=== PATIENT | male | born 1970 | race Hispanic/Latino ===

== ENCOUNTER 2017-07-14 20:13 | Inpatient (IN) | payer BC, OTHER ==
[2017-07-14 20:13] VITALS: BMI 40.0
--- NOTE | 2017-07-14 20:23 | ED PDOC ---
Arrival/HPI - General Chief Complaint: Chest Pain Time Seen by Provider: 07/14/17 20:17 - History of Present Illness Narrative History of Present Illness (Text): 07/14/17 20:22 Patient is a 46 y/o M with HTN, DM, AVR on coumadin, presenting with chest pain. Patient reports intermittent chest pressure under his L chest with midsternal "heartburn" x 1 week. Cannot identify exacerbating or remitting factors. The pain worsened tonight so he presented to ED. Reports recent uri with non-productive cough. Denies SOB. 02/2013 Catheterization: normal coronaries, ef:65%, severe AR Past Medical History - Cardiac Hx Pacemaker: No - Neurological Hx Paralysis: No - Hematological/Oncological Hx Blood Transfusions: No Hx Blood Transfusion Reaction: No - Musculoskeletal/Rheumatological Hx Musculoskeletal Disorders: No - Psychiatric Hx Emotional Abuse: No Hx Physical Abuse: No Hx Substance Use: No - Anesthesia Hx Anesthesia Reactions: No Hx Malignant Hyperthermia: No - Suicidal Assessment Feels Threatened In Home Enviroment: No Family/Social History Family/Social History: Hypertension Smoking Status: never Hx Alcohol Use: Yes (RARELY) Hx Substance Use: No Allergies/Home Meds Allergies/Adverse Reactions: Allergies No Known Allergies Allergy (Verified 01/22/13 14:37) Home Medications: Home Meds Medication Instructions Recorded Confirmed MetFORMIN [glucOPHAGE] 1,000 mg PO DAILY 07/14/17 07/14/17 Metoprolol Succinate [Toprol XL] 25 mg PO DAILY 07/14/17 07/14/17 Warfarin [Coumadin] 9.5 mg PO DAILY 07/14/17 07/14/17 Review of Systems - Review of Systems Constitutional: absent: Fatigue, Weight Change, Fevers Respiratory: absent: SOB, Cough, Sputum, Wheezing Cardiovascular: Chest Pain. absent: Palpitations, Edema, Calf Pain, Orthopnea, Syncope Gastrointestinal: absent: Abdominal Pain, Constipation, Diarrhea, Nausea, Vomiting Genitourinary Male: absent: Dysuria Musculoskeletal: absent: Back Pain, Neck Pain Skin: absent: Rash Neurological: absent: Headache, Dizziness, Focal Weakness, Gait Changes, Speech Changes, Facial Droop, Disequilibrium Psychiatric: absent: Anxiety, Depression Physical Exam Vital Signs Pulse Resp BP Pulse Ox 07/14/17 20:13 99 H 18 146/76 100 Temperature: Afebrile Blood Pressure: Normal Pulse: Regular Respiratory Rate: Normal Appearance: Positive for: Well-Appearing, Non-Toxic, Comfortable Pain Distress: None Mental Status: Positive for: Alert and Oriented X 3 - Systems Exam Head: Present: Atraumatic, Normocephalic Pupils: Present: PERRL Extroacular Muscles: Present: EOMI Conjunctiva: Present: Normal Mouth: Present: Moist Mucous Membranes Neck: Present: Normal Range of Motion Respiratory/Chest: Present: Clear to Auscultation, Good Air Exchange. No: Respiratory Distress, Accessory Muscle Use Cardiovascular: Present: Regular Rate and Rhythm, Normal S1, S2. No: Murmurs Abdomen: No: Tenderness, Distention, Rebound, Guarding Upper Extremity: Present: Normal Inspection Lower Extremity: Present: Normal Inspection Neurological: Present: GCS=15, CN II-XII Intact, Speech Normal Psychiatric: Present: Alert, Oriented x 3, Normal Insight, Normal Concentration Medical Decision Making ED Course and Treatment: 07/14/17 20:52 EKG shows NSR at 97bpm with R ventricular conduction delay. No acute ST changes. Cxray shows cardiomegaly. Trop x 1 negative. Transfer to tele observation due to chest pain and risk factors. - Lab Interpretations Lab Results: 07/14/17 20:30 07/14/17 20:30 Lab Results 07/14/17 20:30: PT 20.1 H, INR 1.75 H, APTT 43.3 H 07/14/17 20:30: Sodium 139, Potassium 4.0, Chloride 98, Carbon Dioxide 27, Anion Gap 18, BUN 11, Creatinine 0.7 L, Est GFR ( Amer) > 60, Est GFR ( Non-Af Amer) > 60, Random Glucose 183 H, Calcium 9.8, Total Bilirubin 0.7, AST 40, ALT 45, Alkaline Phosphatase 99, Total Creatine Kinase 137, Troponin I 0.02 , Total Protein 8.3, Albumin 4.5, Globulin 3.8, Albumin/Globulin Ratio 1.2 07/14/17 20:30: WBC 7.0, RBC 4.75, Hgb 14.3, Hct 42.6, MCV 89.7, MCH 30.1, MCHC 33.6, RDW 13.7, Plt Count 166, MPV 11.2 H, Gran % 58.4, Lymph % (Auto) 20.9 L, [place] % (Auto) 19.0 H, Eos % (Auto) 1.4 L, Baso % (Auto) 0.3, Gran # 4.11, Lymph # (Auto) 1.5, [place] # (Auto) 1.3 H, Eos # (Auto) 0.1, Baso # (Auto) 0.02 - RAD Interpretation Radiology Orders: 07/14/17 20:28 CHEST PORTABLE [RAD] Stat - Medication Orders Current Medication Orders: Warfarin Sodium (Coumadin) 9.5 mg PO 1800 STA PRN Reason: Protocol Stop: 07/14/17 22:13 Discontinued Medications Aspirin (Aspirin Chewable) 324 mg PO STAT STA Stop: 07/14/17 20:30 Last Admin: 07/14/17 20:47 Dose: 324 mg Metformin HCl (Glucophage) 1,000 mg PO STAT STA Stop: 07/14/17 22:13 Metoprolol Succinate (Toprol Xl) 25 mg PO STAT STA Stop: 07/14/17 22:16 Disposition/Present on Arrival - Present on Arrival Any Indicators Present on Arrival: No History of DVT/PE: No History of Uncontrolled Diabetes: No Urinary Catheter: No History of Decub. Ulcer: No History Surgical Site Infection Following: None - Disposition Have Diagnosis and Disposition been Completed?: Yes Diagnosis: Chest pain Disposition: HOSPITALIZED Disposition Time: 21:19 Patient Plan: Observation Patient Problems: Current Active Problems Problem Status Onset Chest pain Acute Condition: FAIR Discharge Instructions (ExitCare): Chest Pain (ED) Referrals: Max Verma MD [Primary Care Provider] - Follow up with primary Forms: [employer] (Sami)
[2017-07-14 20:48] LABS: ALB/GLOB RATIO 1.2 (1.1-1.8); ALBUMIN 4.5 g/dL (3.0-4.8); ALT/SGPT 45 U/L (7-56); AST/SGOT 40 U/L (17-59); BLOOD UREA NITROGEN 11 mg/dL (7-21); CALCIUM 9.8 mg/dL (8.4-10.5); GFR AFRICAN-AMERICAN > 60; GFR NON-AFRICAN AMERICAN > 60
[2017-07-14 20:50] LABS: BASO # 0.02 K/mm3 (0.0-2.0); BASO % 0.3 % (0.0-3.0); EOS # 0.1 (0.0-0.7); EOS % 1.4 % (1.5-5.0); GRAN # 4.11 (1.4-6.5); GRAN % 58.4 % (50.0-68.0); HEMOGLOBIN 14.3 g/dL (14.0-18.0); LYMPH # 1.5 (1.2-3.4); LYMPH % 20.9 % (22.0-35.0); MEAN CELL VOLUME 89.7 fl (80.0-105.0); MEAN CORPUSCULAR HEMOGLOBIN 30.1 pg (25.0-35.0); MEAN CORPUSCULAR HGB CONC 33.6 g/dl (31.0-37.0); MEAN PLATELET VOLUME 11.2 fl (7.0-11.0); MONO # 1.3 (0.1-0.6); RBC 4.75 10^6/uL (3.5-6.1); RED CELL DISTRIBUTION WIDTH 13.7 % (11.5-14.5)
[2017-07-14 20:59] LABS: TROPONIN I 0.02 ng/mL
[2017-07-14 21:17] LABS: INR 1.75 (0.93-1.08); PARTIAL THROMBOPLASTIN TIME 43.3 Seconds (25.1-36.5); PROTHROMBIN TIME 20.1 SECONDS (9.4-12.5)
[2017-07-14] MEDS ORDERED: Metoprolol Succinate 25 mg XL Tab PO STA (22:15)
[2017-07-14] MEDS ORDERED: WARFARIN PO ONE (22:30)
[2017-07-15] MEDS ORDERED: Pneumococcal 23-Valent Vaccine IM ONE (02:11)
[2017-07-15] MEDS: Insulin Reg-LOW-Coverage SC SCH ×2 (09:07→22:00)
[2017-07-15] MEDS: Metoprolol Succinate 25 mg XL Tab PO SCH (09:07)
--- NOTE | 2017-07-15 10:04 | RAD ---
HISTORY: chest pain COMPARISON: No prior. FINDINGS: LUNGS: Mild pulmonary vascular congestion. PLEURA: No significant pleural effusion identified, no pneumothorax apparent. CARDIOVASCULAR: Cardiomegaly is noted. OSSEOUS STRUCTURES: No significant abnormalities. VISUALIZED UPPER ABDOMEN: Normal. OTHER FINDINGS: None. IMPRESSION: Cardiomegaly and mild pulmonary venous congestion.
[2017-07-15] MEDS ORDERED: Enoxaparin 80 mg Syringe SC SCH (15:30)
[2017-07-15] MEDS: WARFARIN PO SCH (17:10)
[2017-07-15] MEDS: Potassium Chloride 20 mEq ER Tab PO SCH (17:11)
--- NOTE | 2017-07-15 23:50 | CARD ---
APPROVED REPORT EKG Measurement Heart [id number] <Conclusion> Normal sinus rhythm RSR' or QR pattern in V1 suggests right ventricular conduction delay Borderline ECG
[2017-07-16 00:10] VITALS: O2SAT 97
[2017-07-16] MEDS ORDERED: cefTRIAXone 1 gm 1 GM/100 ML BAG IVPB STA (00:13)
[2017-07-16 00:41] LABS: BASO # 0.02 K/mm3 (0.0-2.0); BASO % 0.3 % (0.0-3.0); EOS # 0.1 (0.0-0.7); EOS % 1.4 % (1.5-5.0); GRAN # 3.53 (1.4-6.5); HEMOGLOBIN 14.7 g/dL (14.0-18.0); LYMPH # 1.3 (1.2-3.4); LYMPH % 20.2 % (22.0-35.0); MEAN CELL VOLUME 89.9 fl (80.0-105.0); MEAN CORPUSCULAR HEMOGLOBIN 30.3 pg (25.0-35.0); MEAN CORPUSCULAR HGB CONC 33.7 g/dl (31.0-37.0); MEAN PLATELET VOLUME 10.7 fl (7.0-11.0); MONO # 1.5 (0.1-0.6); PLATELET COUNT 154 10^3/uL (120.0-450.0); RBC 4.85 10^6/uL (3.5-6.1); RED CELL DISTRIBUTION WIDTH 13.9 % (11.5-14.5); WHITE BLOOD COUNT 6.4 10^3/ul (4.5-11.0)
[2017-07-16 00:44] LABS: GRAN % 56.9 % (50.0-68.0); MONO % 21.2 % (1.0-6.0)
[2017-07-16 01:11] LABS: LYMPHOCYTE 29 % (22.0-35.0); MONOCYTE 10 % (1.0-6.0)
[2017-07-16 01:12] LABS: HYPOCHROMIA 2+; NEUTROPHIL 58 % (50.0-70.0); PLATELET ESTIMATE NORMAL (NORMAL)
[2017-07-16 01:13] LABS: ROULEAU 2+; TOXIC GRANULATION 1+
[2017-07-16 01:32] LABS: PH,URINE 5.5 (4.7-8.0); URINE BILIRUBIN NEGATIVE (NEGATIVE); URINE BLOOD MODERATE (NEGATIVE); URINE GLUCOSE (UA) NEGATIVE (NEGATIVE); URINE LEUKOCYTE ESTERASE NEGATIVE Leu/uL (NEGATIVE); URINE NITRATE NEGATIVE (NEGATIVE); URINE PROTEIN TRACE mg/dL (<30 mg/dL); URINE UROBILINOGEN 0.2 E.U./dL (<1 E.U./dL)
[2017-07-16 01:33] LABS: URINE APPEARANCE CLEAR (CLEAR); URINE COLOR YELLOW (YELLOW)
[2017-07-16 01:46] LABS: URINE RBC 15 - 20 /hpf (0-2)
[2017-07-16 01:47] LABS: URINE AMORPHOUS SEDIMENT TRACE
--- NOTE | 2017-07-16 03:15 | CON ---
DATE: CARDIOLOGY CONSULT REASON FOR CONSULTATION: Chest discomfort. HISTORY OF PRESENT ILLNESS: The patient is a 47-year-old male who underwent aortic valve replacement at [facility] in 2012 for aortic insufficiency. The patient had a electric motor mechanic bioprosthesis and is currently on Coumadin at 9.5 mg orally daily. Patient presents because of chest pain that is sharp, located at the posterior aspect of the left side of the chest. The patient attributed that to coughing a lot, as he was treated recently for walking pneumonia. The patient does report productive cough. He denies any fever or chills. Patient denies having any complications with Coumadin therapy since 2012. SOCIAL HISTORY: Nonsmoker, nondrinker. MEDICATIONS: Coumadin 9.5 mg daily, Toprol-XL 25 mg once a day. REVIEW OF SYSTEMS: No fever or chills. No hemoptysis. No hematemesis or melena. PHYSICAL EXAMINATION: GENERAL: The patient is a middle-aged male who does not appear to be in any distress at this time. VITAL SIGNS: Blood pressure 117/81, heart rate 93, temperature 98.5, respirations 16. HEENT: Normocephalic. CHEST: Bibasilar rhonchi. HEART: S1 and S2 regular. ABDOMEN: Soft. EXTREMITIES: No edema. LABORATORY DATA: INR on admission was 1.75. SMA-7; sodium 139, potassium 4, chloride 98, CO2 of 27, glucose 183, BUN 11, creatinine 0.7. One set of troponin is negative. Hemoglobin, hematocrit, white count, and platelet count are within normal limit. Chest x-ray revealed cardiomegaly with mild CHF, possible right lower lobe infiltrate. EKG revealed sinus rhythm with RSR' pattern in lead V1. ASSESSMENT: 1. Congestive heart failure. 2. Rule out underlying right lower lobe pneumonia. 3. Status post aortic valve replacement. The patient's INR is not therapeutic yet. RECOMMENDATIONS: Continue Toprol-XL 25 mg once a day. Start Lasix 20 mg intravenously daily with K-Dur 20 mEq once a day. The patient will receive Coumadin 9.5 mg today. Start therapeutic Lovenox in the meantime at 80 mg twice a day until therapeutic INR is achieved. Selwyn Sheridan MD [facility] # [id number]
--- NOTE | 2017-07-16 05:07 | HP ---
HISTORY OF PRESENT ILLNESS: This is a 47-year-old male, who is coming into the hospital complaining of substernal chest pressure. He has a history of hypertension, diabetes, aortic valve replacement, is on Coumadin. The patient says that he was having heartburn symptoms for the past week, but also has been complaining of this chest heaviness. He has a difficult time in quantifying it. He says that it is not pain that he can say. He denies any shortness of breath. No nausea, no vomiting, no fever, headaches, or chills. No weakness in the arms or the legs. The patient did have a cardiac catheterization in 1992, where he was found to have aortic regurgitation and had surgery. He follows with Dr. Bruno who is his heat treating bluer. REVIEW OF SYSTEMS: All other review of symptoms are within normal limits except what is mentioned. FAMILY HISTORY: Has a history of hypertension in the family. SOCIAL HISTORY: He does not smoke. He drinks socially. ALLERGIES: NO KNOWN DRUG ALLERGIES. MEDICATIONS: Glucophage, metoprolol and Coumadin. PAST MEDICAL HISTORY: As above. PHYSICAL EXAMINATION VITAL SIGNS: Temperature is 98.5, pulse of 72, blood pressure 117/81, respirations 16, O2 saturation is 99%. GENERAL: The patient lying in bed, uncomfortable, and in no acute distress. HEENT: Atraumatic and normocephalic. Anicteric sclerae. Moist mucosa. [place] conjunctivae. No oral lesions. NECK: No JVD, anterior and posterior adenopathy, thyromegaly, or bruits. CARDIOVASCULAR: S1 and S2 regular. No murmur, rubs, or gallop. LUNGS: Clear to auscultation bilaterally. No wheezes, rales, or rhonchi. ABDOMEN: Bowel sounds are positive. Soft, nontender and nondistended. No hepatosplenomegaly. No rebound and no guarding. EXTREMITIES: No cyanosis, clubbing, or edema. NEUROLOGIC: No facial asymmetry. Tongue is midline. No uvula deviation. Power is 5/5 upper extremity and lower extremity. Sensation intact in upper extremity and lower extremity. PSYCHIATRIC: He is awake, alert and oriented x3. No anxiety or depression. He has normal affect. GENITOURINARY: No CVA tenderness. VASCULAR: 2+ pulses in the carotid pulses and pedal pulses. SKIN: No erythema or nodules SPINE: Shows normal curvature. LABORATORY DATA: Have been reviewed. White count is 7.0. His troponin is 0.02 and INR is 1.75. ASSESSMENT: 1. Chest pain. 2. Diabetes type 2. 3. Aortic valve replacement, on Coumadin. 4. Hypertension. PLAN: The patient is admitted to the hospital. Patient is on Coumadin. I have increased the patient's Coumadin because he is subtherapeutic. He is on Lasix and potassium. This will be continued. The patient is going to be on metoprolol. I will get Dr. Bruno to evaluate the patient. An echo has been ordered. I will order a repeat troponin tomorrow. Patient is on a heart-healthy diet. We will await further input from Cardiology. Wili Cancino MD
--- NOTE | 2017-07-16 05:14 | CP.PCM.PN ---
Subjective - Date & Time of Evaluation Date of Evaluation: 07/16/17 Time of Evaluation: 01:00 - Subjective Subjective: called by nurse pt has temp 101. no other complaints.pt is admitted for chest pain. Objective - Vital Signs/Intake and Output Vital Signs (last 24 hours): Temp Pulse Resp BP Pulse Ox 99.4 F 82 24 140/85 97 07/16/17 00:30 07/16/17 00:01 07/16/17 00:01 07/16/17 00:01 07/16/17 00:01 Intake and Output: 07/15/17 07/16/17 18:59 06:59 Intake Total 540 Balance 540 - Medications Medications: Current Medications Acetaminophen (Tylenol 325mg Tab) 650 mg PO Q4H PRN PRN Reason: Fever >100.4 F Enoxaparin Sodium (Lovenox) 80 mg SC Q12H [facility] PRN Reason: Protocol Furosemide (Lasix) 40 mg IVP DAILY [facility] Last Admin: 07/15/17 17:11 Dose: 40 mg Insulin Human Regular (Humulin R Low) 0 units SC Q12 [facility] PRN Reason: Protocol Last Admin: 07/15/17 22:00 Dose: Not Given Metoprolol Succinate (Toprol Xl) 25 mg PO DAILY [facility] Last Admin: 07/15/17 09:07 Dose: 25 mg Potassium Chloride (K-Dur 20 Meq Er Tab) 20 meq PO BRK [facility] Last Admin: 07/15/17 17:11 Dose: 20 meq Warfarin Sodium 7.5 mg/ (Warfarin Sodium 2 mg) 9.5 mg PO 1800 [facility] Last Admin: 07/15/17 17:10 Dose: 9.5 mg - Labs Labs: 07/16/17 00:30 PT 20.1 SECONDS (9.4-12.5) H 07/14/17 20:30 INR 1.75 (0.93-1.08) H 07/14/17 20:30 APTT 43.3 Seconds (25.1-36.5) H 07/14/17 20:30 - Constitutional Appears: No Acute Distress - Head Exam Head Exam: NORMOCEPHALIC - Eye Exam Eye Exam: Normal appearance Pupil Exam: PERRL - ENT Exam ENT Exam: Mucous Membranes Moist - Neck Exam Neck Exam: Full ROM - Respiratory Exam Respiratory Exam: NORMAL BREATHING PATTERN - Cardiovascular Exam Cardiovascular Exam: REGULAR RHYTHM - GI/Abdominal Exam GI & Abdominal Exam: Normal Bowel Sounds - Rectal Exam Rectal Exam: Deferred - Extremities Exam Extremities Exam: Full ROM - Neurological Exam Neurological Exam: Alert, Awake, Oriented x3 - Psychiatric Exam Psychiatric exam: Normal Affect - Skin Skin Exam: Dry, Warm Assessment and Plan - Assessment and Plan (Free Text) Assessment: fever resolved. Plan: cbc. blood c/s. u/a.,c/s. tylenol 650 mg x1.
[2017-07-16] MEDS: Enoxaparin 80 mg Syringe SC SCH ×2 (05:23→18:15)
[2017-07-16] MEDS: Insulin Reg-LOW-Coverage SC SCH ×2 (09:23→21:26)
[2017-07-16] MEDS: Metoprolol Succinate 25 mg XL Tab PO SCH (09:23)
[2017-07-16] MEDS: Potassium Chloride 20 mEq ER Tab PO SCH (09:23)
--- NOTE | 2017-07-16 09:50 | RAD ---
HISTORY: temp 101.2 COMPARISON: 07/14/2017. FINDINGS: LUNGS: No active pulmonary disease. PLEURA: No significant pleural effusion identified, no pneumothorax apparent. CARDIOVASCULAR: Cardiomegaly. No evidence of acute, significant cardiovascular disease. Incidental Finding(s): Postoperative changes related to sternotomy. OSSEOUS STRUCTURES: No significant abnormalities. VISUALIZED UPPER ABDOMEN: Normal. OTHER FINDINGS: None. IMPRESSION: No active disease. Resolution of pulmonary vascular congestion seen previously.
[2017-07-16 15:37] LABS: BLOOD UREA NITROGEN 13 mg/dL (7-21); GFR AFRICAN-AMERICAN > 60; GFR NON-AFRICAN AMERICAN > 60
[2017-07-16 15:47] LABS: INR 1.78 (0.93-1.08); PROTHROMBIN TIME 20.5 SECONDS (9.4-12.5)
--- NOTE | 2017-07-16 16:22 | CARD ---
APPROVED REPORT EXAM: Two-dimensional and M-mode echocardiogram with Doppler and color Doppler. INDICATION 2D DIMENSIONS IVSd1.5 (0.7-1.1cm)LVDd3.7 (3.9-5.9cm) LVOT Diameter2.4 (1.8-2.4cm)PWd1.4 (0.7-1.1cm) LVDs3.2 (2.5-4.0cm)FS (%) 14.6 % LVEF (%)31.6 (>50%) M-Mode DIMENSIONS Left Atrium (MM)4.40 (2.5-4.0cm)Aortic Root3.50 (2.2-3.7cm) Aortic Valve AoV Peak Btfkcefp184.0cm/sAoV VTI25.3cmAO Peak GR.11mmHg LVOT Peak Dbcrzvre82.7cm/sLVOT VTI15.10cmAO Mean GR.6mmHg SUKHDEV (VMAX)2.69am7ZWF (VTI)2.70cm2 Mitral Valve MV E Nnqyczsb61.9cm/sMV A Peglabye57.0cm/sE/A ratio0.6 TDI Lateral E' Peak V5.75cm/sMedial E' Peak V4.68cm/sE/Lateral E'8.2 E/Medial E'10.0 Tricuspid Valve TR Peak Xyfymxdv044kb/sRAP ETWINGXF08xhSnBJ Peak Gr.18mmHg [id number] LEFT VENTRICLE The left ventricle is normal size. There is moderate concentric left ventricular hypertrophy. The systolic function is severely impaired. There is global hypokinesis of the left ventricle. Transmitral Doppler flow pattern is Grade I-abnormal relaxation pattern. RIGHT VENTRICLE The right ventricle is normal size. There is normal right ventricular wall thickness. RV Systolic function is moderately reduced. ATRIA The left atrium size is normal. The right atrium size is normal. AORTIC VALVE Cannot assess prosthetic aortic valve opening due to artifacts. MITRAL VALVE The mitral valve is normal in structure. There is no mitral valve regurgitation noted. TRICUSPID VALVE There is no pulmonary hypertension. GREAT VESSELS The aortic root is mildly enlarged. PERICARDIAL EFFUSION There is a small loculated anterior pericardial effusion. <Conclusion> The left ventricle is normal size. There is moderate concentric left ventricular hypertrophy. The systolic function is severely impaired. There is global hypokinesis of the left ventricle. Transmitral Doppler flow pattern is Grade I-abnormal relaxation pattern. RV Systolic function is moderately reduced. Cannot assess prosthetic aortic valve opening due to artifacts.
[2017-07-16] MEDS: WARFARIN PO SCH (18:14)
--- NOTE | 2017-07-16 19:52 | PN ---
DATE: SUBJECTIVE: The patient's shortness of breath has improved. He diuresed adequately after IV Lasix. PHYSICAL EXAMINATION: VITAL SIGNS: Blood pressure 120/70, heart rate 71, temperature 98.5, respirations 20. HEENT: Normocephalic. CHEST: Clear. HEART: S1 and S2, regular. ABDOMEN: Soft. EXTREMITIES: Trace leg edema. LABORATORY DATA: Today's hemoglobin, hematocrit, white count and platelet count are within normal limits. Today's chest x-ray revealed significant cardiomegaly with prominent bronchovascular markings. ASSESSMENT: 1. Chest pain, myocardial infarction is ruled out. 2. Congestive heart failure. 3. Status post aortic valve replacement. RECOMMENDATIONS: Continue current Coumadin and therapeutic subcutaneous Lovenox. Continue IV Lasix and K-Dur. Obtain BMP and INR today. We will follow echocardiograph study performed today. Selwyn Sheridan MD
[2017-07-17] MEDS: Enoxaparin 80 mg Syringe SC SCH (05:01)
--- NOTE | 2017-07-17 06:05 | DS ---
HISTORY OF PRESENT ILLNESS: The patient states he has no complaints of any chest pain. His chest pain has resolved. He has no complaints of any headaches or dizziness. He did have a temperature that was elevated this morning for short duration, but he has no complaints of any headaches or dizziness. No nausea, no vomiting. The patient's troponins are normal. The last troponin is 0.02 this morning. PHYSICAL EXAMINATION: VITAL SIGNS: Temperature is 98.5, pulse is 71, blood pressure 120/80, respirations 20, O2 saturation 97%. GENERAL: The patient is lying in bed, flat, comfortable. HEENT: No oral lesion. Anicteric sclerae. Moist mucosa. NECK: No JVD, adenopathy, or thyromegaly. CARDIOVASCULAR: S1 and S2, regular. No murmurs, rubs, or gallops. LUNGS: Clear to auscultation bilaterally. No wheeze, rales, or rhonchi. ABDOMEN: Bowel sounds are positive, soft, nontender and nondistended. EXTREMITIES: No cyanosis, clubbing or edema. LABORATORY DATA: Chest x-ray done shows no active disease. There is improvement of the pulmonary congestion he had. ASSESSMENT: 1. Chest pain. 2. Aortic valve replacement. 3. Hypertension. 4. Diabetes type 2. PLAN: The patient's INR is subtherapeutic. His Coumadin has been increased yesterday. The patient is on Lasix daily. He is on Lovenox. The patient is on metoprolol. He has an echo that is ordered. After the echo, the patient will most likely go home. He is advised to continue his increased dose of Coumadin. Condition, stable. Activities, increase as tolerated. Wili Cancino MD
[2017-07-17 07:52] VITALS: BP 115/63; PULSE 82; RESP 18; TEMP 99
--- NOTE | 2017-07-18 09:09 | DS ---
Please see the discharge summary that was done yesterday. The patient had an echocardiogram that showed systolic function is severely impaired. The patient is going to be followed up with Dr. Dewitt, I did speak to Dr. Dewitt regarding the case. PHYSICAL EXAMINATION VITAL SIGNS: Temperature is 99, pulse of 82, blood pressure 115/63. GENERAL: The patient is lying in bed, flat, comfortable. HEENT: No oral lesion. Anicteric sclerae. Moist mucosa. NECK: No JVD, adenopathy, or thyromegaly. CARDIOVASCULAR: S1 and S2, regular. No murmurs, rubs, or gallops. LUNGS: Clear to auscultation bilaterally. No wheeze, rales, or rhonchi. ABDOMEN: Bowel sounds are positive. Soft, nontender and nondistended. EXTREMITIES: No cyanosis, clubbing or edema. ASSESSMENT 1. Chest pain, resolved. 2. Aortic valve replacement. 3. Hypertension. 4. Diabetes type 2. 5. Congestive heart failure secondary to systolic dysfunction, chronic, stable. PLAN: The patient is going to increase his Coumadin dosage. He was advised to increase to 10.5. The patient is going to continue his metoprolol. He is on metformin for his diabetes. CONDITION: Stable. ACTIVITIES: Increase as tolerated. The patient is advised to come back to the hospital if condition is worse. Wili Cancino MD
== END 2017-07-17 08:38 | disposition home or self-care (01) | DRG 313 ==
LOC: ED 20:13 → ERH 21:21 → OBSVTOIN 07-15 08:10 → ERH 07-15 08:23 → 3RNO 07-15 10:46
PROVIDERS: ADMIT Internal Medicine Nephrology; ATTEND Internal Medicine Nephrology
DX: R07.9 Chest pain, unspecified (principal); I11.0 Hypertensive heart disease with heart failure; I50.22 Chronic systolic (congestive) heart failure; E11.9 Type 2 diabetes mellitus without complications; Z95.2 Presence of prosthetic heart valve; Z79.01 Long term (current) use of anticoagulants

== ENCOUNTER 2017-08-15 06:40 | Day surgery (SDC) | payer BC ==
[2017-08-15] MEDS ORDERED: Lidocaine 2% Inj (20ml) ONE (07:02)
[2017-08-15] MEDS ORDERED: Phenylephrine 10 mg/ml Inj ONE (07:02)
[2017-08-15] MEDS ORDERED: HEPARIN SODIUM/NS 2,000 ML IV ONE (07:03)
[2017-08-15 07:11] LABS: BASO # 0.02 K/mm3 (0.0-2.0); BASO % 0.3 % (0.0-3.0); EOS # 0.2 (0.0-0.7); EOS % 2.1 % (1.5-5.0); GRAN # 4.97 (1.4-6.5); GRAN % 63.7 % (50.0-68.0); HEMOGLOBIN 13.8 g/dL (14.0-18.0); LYMPH # 1.6 (1.2-3.4); LYMPH % 20.1 % (22.0-35.0); MEAN CELL VOLUME 90.1 fl (80.0-105.0); MEAN CORPUSCULAR HEMOGLOBIN 29.8 pg (25.0-35.0); MEAN CORPUSCULAR HGB CONC 33.1 g/dl (31.0-37.0); MEAN PLATELET VOLUME 10.7 fl (7.0-11.0); MONO # 1.1 (0.1-0.6); MONO % 13.8 % (1.0-6.0); RBC 4.63 10^6/uL (3.5-6.1); RED CELL DISTRIBUTION WIDTH 14.1 % (11.5-14.5); WHITE BLOOD COUNT 7.8 10^3/ul (4.5-11.0)
[2017-08-15 07:20] LABS: INR 1.01 (0.93-1.08); PROTHROMBIN TIME 11.6 SECONDS (9.4-12.5)
[2017-08-15 07:26] LABS: BLOOD UREA NITROGEN 10 mg/dL (7-21); CALCIUM 9.5 mg/dL (8.4-10.5); GFR AFRICAN-AMERICAN > 60; GFR NON-AFRICAN AMERICAN > 60; HDL CHOLESTEROL 30 mg/dL (29-60)
[2017-08-15 07:27] LABS: LDL CHOLESTEROL 115 mg/dL (0-129)
[2017-08-15] MEDS ORDERED: Iohexol 350 MG/100 ML VIAL ONE (07:35)
[2017-08-15] MEDS ORDERED: Nitroglycerin 50mg in D5W 50 MG/250 ML BOTTLE IV ONE (07:35)
[2017-08-15] MEDS ORDERED: Verapamil 2 ML ONE (07:35)
[2017-08-15] MEDS ORDERED: Iohexol 350mgl/ml 50 ML ONE (07:35)
[2017-08-15] MEDS ORDERED: Midazolam 2 MG/2 ML VIAL ONE (07:51)
--- NOTE | 2017-08-15 08:43 | HP ---
REASON FOR ADMISSION: Left heart cath, possible angioplasty, abnormal stress test. BRIEF CLINICAL HISTORY: This is a 47-year-old male with history of metallic mechanical aortic valve replacement in 2012, on warfarin, with abnormal stress test. Patient is scheduled for elective cardiac cath, possible angioplasty. The patient is complaining of dyspnea on exertion and chest pain on exertion. PAST MEDICAL HISTORY: Significant for hypertension, mechanical aortic valve replacement in 2012. PREVIOUS CARDIAC WORKUP FOLLOWS: Patient had echocardiography on 07/16/2017 that shows ejection fraction at 32% by Dr. Sheridan, systolic function is really depressed, global hypokinesis, RV systolic function moderately reduced, prosthetic mechanical aortic valve. Patient's last catheterization on 02/26/2013 performed as a preop for open heart surgery for severe aortic regurgitation. At that time, it shows normal coronary ejection fraction of 65%, severe AR, upper limit normal, right heart catheterization, upper heart normal, normal heart and normal right heart pressure. CURRENT MEDICATIONS: Patient is taking at home Coumadin 10.5 mg daily, metoprolol succinate 25 mg daily, metformin 1 g twice a day, aspirin 81 mg daily. REVIEW OF SYSTEMS: As per HPI. PHYSICAL EXAMINATION: VITAL SIGNS: Height of the patient is 6 feet, weight is 295 pounds, body mass index 40 kg/m2. Blood pressure 130/80, heart rate 72. HEENT: PERRLA, extraocular muscles intact. NECK: Supple. No carotid bruit or thyromegaly. CHEST: Clear to auscultation. HEART: S1, S2 regular. Metallic aortic valve sound, S1. ABDOMEN: Soft. EXTREMITIES: Clubbing and cyanosis negative. IMPRESSION: Cardiomyopathy, dyspnea on exertion, admitted recently with congestive heart failure. RECOMMENDATION: Left heart catheterization. Further recommendations after heart catheterization. Risks, benefits, and alternatives were discussed with the patient. Patient agreed. We will proceed for cardiac catheterization. Thank you Dr. Bruno for providing us the opportunity in taking care of the patient. Lasha Dewitt MD cc: Dr. Barak Bruno [facility]
[2017-08-15 08:45] VITALS: RESP 18
[2017-08-15] MEDS ORDERED: Bacitracin 500 Units/gm Oint Foilpak UD TOP ONE (08:48)
[2017-08-15 08:57] VITALS: TEMP 98.3; O2SAT 96
[2017-08-15] MEDS ORDERED: Sodium Chloride 0.9% 1,000 ML IV SCH (09:00)
[2017-08-15] MEDS ORDERED: WARFARIN PO ONE (10:00)
--- NOTE | 2017-08-15 10:16 | CARD ---
APPROVED REPORT EKG Measurement Heart [id number] [place] 196P [id number] <Conclusion> Sinus bradycardia NSSTW changes No change except the rate is slower no c/e ECG 07/14/17
[2017-08-15] MEDS ORDERED: Bacitracin 500 Units/gm Oint Foilpak UD ONE (11:09)
[2017-08-15 11:26] VITALS: BP 102/50; PULSE 63
--- NOTE | 2017-08-15 13:51 | CARD ---
APPROVED REPORT Procedure(s) performed: Selective Right and Left Coronary Angiography HISTORY The patient is a 47 year-old male with a history of : most recent EF: 31.6%. (EF Method: Echocardiogram), diabetes mellitus with oral treatment , previous diagnostic cath, hypertension , dyslipidemia , previous valve surgery (The previous valve surgery date was ), S/P mechanical AVR five years ago, now on F/u had an abnormal stress test.. INDICATION The indication(s) include : positive stress test. CASE TECHNIQUE The patient was brought electively to the Cardiac Catheterization Laboratory in a fasting state and was prepped and draped in a sterile manner. The left wrist was infiltrated with 2% Lidocaine subcutaneous anesthesia. A 6FR GLIDESHEATH ACCESS KIT sheath was inserted into the left radial artery without difficulty. Coronary angiography was performed using coronary diagnostic catheters. The left coronary system was accessed and visualized with a Diagnostic ,5 Fr JL 4 catheter. The right coronary system was accessed and visualized with a Diagnostic ,6 Fr AL 1 catheter. Left ventricular/Aortic Valve gradient assessed on pullback. Left ventriculogram was performed in [place] projection. The patient tolerated the procedure well and there were no complications associated with the procedure. Vessel Analysis The patient's coronary anatomy is left dominant. The left main coronary artery is a medium size vessel without significant stenosis. The left main bifurcates to the left anterior descending and circumflex. The left anterior descending artery is a medium size vessel with intimal irregularities and without significant stenosis. There is a 55% stenosis in the mid segment. The first diagonal branch is a small size vessel with intimal irregularities and without significant stenosis. The circumflex artery is a large size vessel without significant stenosis. The first obtuse marginal branch is a large size vessel with diffuse calcification noted throughout this vessel and without significant stenosis. The left posterior descending artery is a large size vessel with intimal irregularities and without significant stenosis. The right coronary artery is a medium size vessel without significant stenosis. Non dominant Renal Angiogram LV gram was not obtained as pt has Mechanical AVR. Conclusion Non Obstructive CAD limited to Mid LAD 55% stenosis. Recommendations Aggressive Medical TherapyCardiac Risk Reduction Program Weight Loss Reduction Program Add Dig / JOE/ coreg as BP is tolerated Resume coumadin from today, Lovenox from tomorrow for 1-2 days. PT/INR on Tuesday with Dr. Verma Reassess LV EF% in 3-6 months,if EF% remains <35%,consider AICD placement. cc; DRs. Maeve Verma / Kiana.
== END 2017-08-15 12:00 | disposition home or self-care (01) ==
LOC: CATH 06:40
PROVIDERS: ATTEND Internal Medicine Cardiovascular Disease
DX: I25.10 Atherosclerotic heart disease of native coronary artery without angina pectoris (principal); I42.9 Cardiomyopathy, unspecified; I11.0 Hypertensive heart disease with heart failure; I50.9 Heart failure, unspecified; E78.5 Hyperlipidemia, unspecified; E11.9 Type 2 diabetes mellitus without complications; Z79.84 Long term (current) use of oral hypoglycemic drugs; Z79.82 Long term (current) use of aspirin; Z95.2 Presence of prosthetic heart valve; Z79.01 Long term (current) use of anticoagulants
CPT/HCPCS: 36415; 80048; 80061; 85025; 85610; 85730; 86850; 86900; 93005; 93454; 99152; C1769; C1887; J1644 ×2; J2250; J3010; J7040 ×2; Q9967